=== PATIENT | female | born 1955 | race Two or more races ===

== ENCOUNTER 2017-11-21 09:53 | Inpatient (IN) | payer OTHER ==
[~2017-11-21] VITALS: Ht 165.1 cm; Wt 86.2 kg
[2017-11-21] MEDS ORDERED: MOBIC7.5 M1 PO (10:34)
[2017-11-21] MEDS ORDERED: SKELAXIN800 MG PO (10:34)
[2017-11-25] MEDS ORDERED: TRAMADOL HCL50 MG PO (08:45)
[2017-11-25] MEDS ORDERED: ORPHENADRINE C100 MG PO (08:45)
[2017-11-25] MEDS ORDERED: KEFLEX500 MG PO ×2 (08:45→08:49)
== END 2017-11-25 13:55 | disposition home or self-care (01) | DRG 460 ==
LOC: O/R 11-24 05:50 → SURH 11-24 07:00 → PED 11-24 15:45
PROVIDERS: Orthopaedic Surgery
PROC: 0ST20ZZ Resection of Lumbar Vertebral Disc, Open Approach (ICD-10-PCS; 2017-11-24)
PROC: 00NY0ZZ Release Lumbar Spinal Cord, Open Approach (ICD-10-PCS; principal; 2017-11-24 07:00)
PROC: 0SG00AJ Fusion of Lumbar Vertebral Joint with Interbody Fusion Device, Posterior Approach, Anterior Column, Open Approach (ICD-10-PCS; 2017-11-24 07:00)
DX: M48.061 Spinal stenosis, lumbar region without neurogenic claudication (principal); M47.26 Other spondylosis with radiculopathy, lumbar region; M43.16 Spondylolisthesis, lumbar region; M51.16 Intervertebral disc disorders with radiculopathy, lumbar region